=== PATIENT | female | born 1995 | race Caucasian/White ===

== ENCOUNTER 2018-10-04 16:15 | Emergency (ER) | payer OTHER ==
[2018-10-04] MEDS ORDERED: LIDOCAINE 5% (700 MG) TRANSDERMAL ADH..PATCH TP ONE (22:01)
--- NOTE | 2018-10-04 22:02 | ER Document Report ---
ED General - General Chief Complaint: Head Injury Stated Complaint: HEAD INJURY/BACK PAIN Time Seen by Provider: 10/04/18 20:29 Primary Care Provider: QUINN GALVAN MD [Primary Care Provider] - Follow up as needed Notes: 23-year-old female presents to the emergency department after hitting her head on Sunday to play, playing with her son. She is no loss of consciousness no retrograde or antegrade amnesia. She said she was little sore yesterday then today she had a severe headache and blurred vision after staring at a computer screen working. She complains of headache occasional dizziness and lighthead edness. Headache is described as tension type. She does not have any neck stiffness. No fevers no chills. No nausea no vomiting. No diarrhea. No numbness or tingling in any of your extremities. She is also complaining of some lower back pain that she describes as paraspinal on the right side. TRAVEL OUTSIDE OF THE [place] IN LAST 30 DAYS: No - Related Data Allergies/Adverse Reactions: No Known Allergies Allergy (Unverified 10/04/18 16:24) Past Medical History - Social History Smoking Status: Never Smoker Family History: Reviewed & Not Pertinent Review of Systems - Review of Systems Constitutional: See HPI EENT: See HPI Cardiovascular: See HPI Respiratory: See HPI Gastrointestinal: See HPI Genitourinary: No symptoms reported Female Genitourinary: No symptoms reported Musculoskeletal: No symptoms reported Skin: No symptoms reported Hematologic/Lymphatic: No symptoms reported Neurological/Psychological: No symptoms reported Physical Exam - Vital signs Vitals: Temp Pulse Resp BP Pulse Ox 98.7 F 74 14 117/54 L 99 10/04/18 17:04 10/04/18 17:04 10/04/18 17:04 10/04/18 17:04 10/04/18 17:04 - Notes Notes: PHYSICAL EXAMINATION: Reviewed vital signs and charting by RN GENERAL: Alert, interacts well. No acute distress. HEAD: Normocephalic, atraumatic. EYES: Pupils equal, round, and reactive to light. Extraocular movements intact. ENT: Oral mucosa moist, tongue midline. NECK: Full range of motion. Supple. Trachea midline. LUNGS: Clear to auscultation bilaterally, no wheezes, rales, or rhonchi. No respiratory distress. HEART: Regular rate and rhythm. No murmur ABDOMEN: soft, non-tender. Non-distended. Bowel sounds present in all 4 quadrants. no McBurney's point tenderness, no Thomason sign. EXTREMITIES: Moves all 4 extremities spontaneously. No edema, No cyanosis. BACK: no cervical, thoracic, lumbar midline tenderness. No saddle anesthesia, normal distal neurovascular exam. NEUROLOGICAL: Alert and oriented x3. Normal speech. Face symmetric. Tongue protrudes midline. Extraocular motions intact. Pupils are 2 mm and equally reactive. Normal speech, normal gait. 5 out of 5 strength in both the distal and proximal upper and lower extremities bilaterally. Sensation is grossly intact throughout. Finger to nose testing normal. Pronator drift normal. PSYCH: Normal affect, normal mood. SKIN: Warm, dry, normal turgor. No rashes or lesions noted. Course - Re-evaluation Re-evalutation: 10/04/18 22:05 Well-appearing 23-year-old female presents after hitting her head on Sunday at the playground. No loss of consciousness antegrade or retrograde amnesia. Mentation was normal afterwards per patient. Patient with a completely normal neurologic exam, no cerebellar dysfunction, no focal deficits, no unilateral or bilateral weakness of any extremities. Negative for [place] CT head criteria. Patient most likely with a mild traumatic brain injury. She is safe to discharge home with head injury precautions. - Vital Signs Vital signs: Temp Pulse Resp BP Pulse Ox 98.7 F 74 14 117/54 L 99 10/04/18 17:04 10/04/18 17:04 10/04/18 17:04 10/04/18 17:04 10/04/18 17:04 Discharge - Discharge Clinical Impression: Concussion Qualifiers: Encounter type: initial encounter Loss of consciousness presence/duration: without LOC Qualified Code(s): S06.0X0A - Concussion without loss of consciousness, initial encounter Headache Qualifiers: Headache type: tension-type Condition: Good Disposition: HOME, SELF-CARE Instructions: Concussion ([facility]) Additional Instructions: Symptoms to expect from a concussion include nausea, mild to moderate headache, difficulty concentrating or sleeping, and mild lightheadedness. These symptoms should improve over the next few days to weeks. Return to the emergency department or follow-up with your primary care doctor if your symptoms are not improving over this time. Signs of a more serious head injury include vomiting, severe headache, excessive sleepiness or confusion, and weakness or numbness in your face, arms or legs. Return immediately to the Emergency Department if you experience any of these more concerning symptoms. Rest, avoid strenuous physical or mental activity, and avoid activities that could potentially result in another head injury until all your symptoms from this head injury are completely resolved for at least 2-3 weeks. If you participate in sports, get cleared by your doctor or tank assembler before returning to play. You may take ibuprofen or acetaminophen over the counter according to label instructions for mild headache or scalp soreness. Forms: Return to Work Referrals: QUINN GALVAN MD [Primary Care Provider] - Follow up as needed
[2018-10-04] MEDS ORDERED: ACETAMINOPHEN SOLN 325 MG/10.15 ML UDCUP PO ONE (22:04)
[2018-10-04] MEDS ORDERED: IBUPROFEN 600 MG TABLET PO ONE (22:04)
[2018-10-05 01:21] VITALS: BP 105/66
== END 2018-10-04 22:36 | disposition home or self-care (01) ==
LOC: ER 16:15
DX: S06.0X0A Concussion without loss of consciousness, initial encounter (principal); W19.XXXA Unspecified fall, initial encounter; Y92.830 Public park as the place of occurrence of the external cause; G44.209 Tension-type headache, unspecified, not intractable; R42 Dizziness and giddiness; H53.8 Other visual disturbances; M54.5 Low back pain
CPT/HCPCS: 99283; J3490